=== PATIENT | female | born 1960 | race Caucasian/White ===

== ENCOUNTER 2020-04-14 10:34 | Emergency (ER) | payer BC, SELFPAY ==
[2020-04-14 10:40] VITALS: BP 128/89; PULSE 82; RESP 21; TEMP 36.8; O2SAT 99; BMI 30.2
--- NOTE | 2020-04-14 10:53 | HMH.EDUTC ---
[facility] [place] Disposition Clinical Impression: Bronchitis Sinusitis Qualifiers: Sinusitis location: unspecified location Chronicity: unspecified Qualified Code(s): J32.9 - Chronic sinusitis, unspecified Disposition: Home, Self-Care Condition on Discharge: Good Instructions: Diarrhea, Acute Bronchitis, DI for Sinusitis, Preventing the Spread of Coronavirus Discharge Instructions Additional Instructions: *Monitor Temp, Over the counter Motrin or Tylenol as directed/as needed Tylenol every 4 hours and Motrin every 6 hours (as long as your family doctor has told you that you can take it) for fever or pain. and straight to ER if unable to lower temp less than 101.0 after medication given *Warm salt water gargles may help to soothe the throat *Throat Lozenges *Warm fluids like tea with honey may help to soothe the throat *Sleep elevated *Humidifier/Vaporizer *Flonase 2 sprays in each nostril daily but be aware that it may take 2-3 days before you notice improvement ? Inhaler every 4-6 hours as needed like we discussed. If unsure how to use it, ask pharmacist to demonstrate how. Should help open airways and improve cough, wheezing, and shortness of breath Your throat swab was sent for culture. Those results are typically sent to your primary care. Be sure to follow up in 2-3 days with your family doctor/primary care physician if no improvement so they can review those result and treat if necessary. If you don?t have a primary care doctor, I recommend you get one but in the mean time, you will have to return to a walk in clinic Follow up IMMEDIATELY for new or worsening symptoms or no Noticeable improvement over the next 48-72 hours. 911 for difficulty breathing or swallowing ? You was given an outpatient order for diarrhea panel, please collect specimen and bring back to outpatient lab then call back to the [facility] or follow up with family doctor for results You was tested for today for COVID19 your test result should be back later this evening, you may call back later this evening to see if your test results are back and the result You was given a handout with instructions for Self Quarantine and Self isolation for while you wait on test results and what to do if they are positive Prescriptions: Albuterol Sulfate [Proventil-HFA 90mcg/puff Inh] 1 - 2 puffs IH Q4HP PRN #1 inh PRN Reason: Shortness Of Breath Transmission Status: Received by [facility] Dicyclomine HCl [Bentyl 10mg capsule] 10 mg PO TID PRN #15 cap PRN Reason: Cramping Transmission Status: [facility] Azithromycin [Z-Anthony 250mg Tab] 250 mg PO DIRECTED #6 tab Transmission Status: [facility] Referrals: Monika Mcallister [Primary Care Provider] - As needed Time of Disposition: 11:18 Medical Decision Making - Norberto Inquiry Pt receiving controlled substance: No Norberto was queried for this patient: No Vital Signs: 04/14/20 10:40 04/14/20 11:23 Temperature 98.2 F 98.2 F Temperature Source Oral Pulse Rate 82 Pulse Rate [Right Brachial] 82 Respiratory Rate 21 21 Blood Pressure 128/89 Blood Pressure [Right Arm] 128/89 Blood Pressure Mean [Right Arm] 102 Blood Pressure Source [Right Arm] Automatic Cuff Blood Pressure Position [Right Arm] Sitting 02 Sat by Pulse Oximetry 99 Oxygen Delivery Method Room Air - Lab Data Lab results reviewed: Yes: I reviewed the patient's lab results. Lab Results 04/14/20 10:45: Influenza Type A Ag Negative, Influenza Type B Ag Negative 04/14/20 10:45: Strep Scn Rapid Clinic Negative Orders (Tests/Meds): ORDERS Category Date Time Status Diarrhea 23 Panel, PCR Stat Lab 04/14/20 16:09 Ordered Strep Screen Confirmation Stat Micro 04/14/20 10:45 Received [facility] [place] HPI - General Stated complaint: Fever, cough, diarrhea Time Seen by Provider: 04/14/20 10:56 Mode of Arrival: Ambulatory Source of Information: Patient Limitations: No Limitations Description of
[2020-04-14 11:09] LABS: UTC Strep Screen (Rapid) Negative (Negative)
[2020-04-14 11:10] LABS: UTC Influenza A Antigen Negative (Negative); UTC Influenza B Antigen Negative (Negative)
[2020-04-14 11:23] VITALS: BP 128/89; PULSE 82; RESP 21; TEMP 36.8; O2SAT 99
[2020-04-17 14:55] LABS: Adenovirus F 40/41, stool Not Detected (NotDetected); Astrovirus Not Detected (NotDetected); Campylobacter Not Detected (NotDetected); Clostridium Difficile A/B, PCR Not Detected (NotDetected); Cryptosporidium Not Detected (NotDetected); Cyclospora Cayetanesis Not Detected (NotDetected); Entamoeba histolytica Not Detected (NotDetected); Enteroaggregative E coli Not Detected (NotDetected); Enteropathogenic E coli Not Detected (NotDetected); Enterotoxigenic E coli Not Detected (NotDetected); Giardia lamblia Not Detected (NotDetected); Norovirus Not Detected (NotDetected); Plesimonas Shigalloides, PCR Not Detected (NotDetected); Rotavirus A Not Detected (NotDetected); Salmonella, PCR Not Detected (NotDetected); Shiga-like toxin E coli Not Detected (NotDetected); Shigella Enterovasive E coli Not Detected (NotDetected); Vibrio Cholerae Not Detected (NotDetected); Vibrio, PCR Not Detected (NotDetected); Yersinia Entercolitica, PCR Not Detected (NotDetected)
[2020-04-21 03:39] LABS: Sapovirus Not Detected (NotDetected)
== END 2020-04-14 11:25 | disposition home or self-care (01) ==
PROVIDERS: Emergency Provider Nurse Practitioner; PCP Family Medicine Addiction Medicine
DX: J20.9 Acute bronchitis, unspecified (principal); R19.7 Diarrhea, unspecified; J32.9 Chronic sinusitis, unspecified; Z20.828 Contact with and (suspected) exposure to other viral communicable diseases; Z88.0 Allergy status to penicillin; Z88.2 Allergy status to sulfonamides; F17.210 Nicotine dependence, cigarettes, uncomplicated
CPT/HCPCS: 87507; 87804; 87880; 99202; U0003

== ENCOUNTER 2020-07-20 14:35 | Emergency (ER) | payer BC, SELFPAY ==
[2020-07-20 15:25] VITALS: BP 99/59; PULSE 99; RESP 14; TEMP 36.6; O2SAT 97; BMI 29.2
--- NOTE | 2020-07-20 15:56 | HMH.EDUTC ---
[facility] [place] Disposition Clinical Impression: Acute bronchitis Qualifiers: Bronchitis organism: unspecified organism Qualified Code(s): J20.9 - Acute bronchitis, unspecified Disposition: Home, Self-Care Condition on Discharge: Good Instructions: DI for Chronic Obstructive Pulmonary Disease, How to Quit Tobacco Products Additional Instructions: Drink plenty of fluids. Take tylenol for pain or fever. Return if you begin to have difficulty breathing. Follow up with your regular doctor. GO TO THE ER FOR ANY WORSENING SYMPTOMS Prescriptions: Promethazine/Dextromethorphan [Promethazine-Dm Syrup] 5 ml PO Q6HP PRN #240 syrup PRN Reason: Cough Transmission Status: Received by [facility] Azithromycin [Z-Anthony 250mg Tab*] 250 mg PO UD DOSE PK #6 tab Transmission Status: Received by [facility] Referrals: PCP,No [Primary Care Provider] - Time of Disposition: 16:05 Medical Decision Making - Medical Records Medical records reviewed: No: I reviewed the patient's medical records. - Norberto Inquiry Pt receiving controlled substance: No Vital Signs: 07/20/20 15:25 07/20/20 16:13 Temperature 97.8 F 97.8 F Temperature Source Oral Pulse Rate 99 H Pulse Rate [Right Brachial] 99 H Respiratory Rate 14 14 Blood Pressure 99/59 L Blood Pressure [Right Arm] 99/59 L Blood Pressure Mean [Right Arm] 72 Blood Pressure Source [Right Arm] Automatic Cuff Blood Pressure Position [Right Arm] Sitting 02 Sat by Pulse Oximetry 97 Oxygen Delivery Method Room Air - Lab Data Lab Results 07/20/20 15:38: Influenza Type A Ag Negative, Influenza Type B Ag Negative 07/20/20 15:38: Strep Scn Rapid Clinic Negative Orders (Tests/Meds): ORDERS Category Date Time Status Strep Screen Confirmation Stat Micro 07/20/20 15:38 Received [facility] [place] HPI - General Stated complaint: Shortness of breath;congestion Time Seen by Provider: 07/20/20 15:56 Mode of Arrival: Ambulatory Source of Information: Patient Limitations: No Limitations Description of Symptoms (Recalled from Triage Doc. by RN): PATIENT C/O COUGH, SORE THROAT, AND SOA X 2 WEEKS HEENT Symptoms (Recalled from RN notes): No Resp Symptoms (Recalled from RN notes): Yes Skin Symptoms (Recalled from RN notes): No MS Symptoms (Recalled from RN notes): No Functional Status (Recalled from RN notes): WNL - History of Present Illness Provider Complaint: She states that for over the past 1 week she has had a cough and chest congestion. It seems to be getting worse. She denies significant shortness of breath. She has smoked cigarettes for the past 35 years. She denies any history of copd or asthma. - Related Data Previous Rx's Medication Instructions Recorded Albuterol Sulfate [Proventil-HFA 1 - 2 puffs IH Q4HP PRN #1 inh 04/14/20 90mcg/puff Inh] Azithromycin [Z-Anthony 250mg Tab] 250 mg PO DIRECTED #6 tab 04/14/20 Dicyclomine HCl [Bentyl 10mg 10 mg PO TID PRN #15 cap 04/14/20 capsule] Azithromycin [Z-Anthony 250mg Tab*] 250 mg PO UD DOSE PK #6 tab 07/20/20 Promethazine/Dextromethorphan 5 ml PO Q6HP PRN #240 syrup 07/20/20 [Promethazine-Dm Syrup] Allergies Allergy/AdvReac Type Severity Reaction Status Date / Time Corticosteroids Allergy Severe Anaphylaxis Verified 05/28/19 15:30 (Glucocorticoids) Penicillins [PENICILLINS] Allergy Mild UNKNOWN Verified 05/28/19 15:30 Sulfa (Sulfonamide Allergy Mild UNKNOWN Verified 05/28/19 15:30 Antibiotics) [SULFA (SULFONAMIDE ANTIBIOTICS)] ALL COLD MEDICINES Allergy Intermediate I-RASH, Uncoded 06/07/17 14:36 CAUSES TO SWELL - Worker's Comp Is this a Worker's Comp case?: No [facility] History - Hepatitis A Screen Drug use history?: No High risk sexual behaviors?: No History of sexually transmitted infection?: No Currently employed?: No Childcare worker?: No Do you have indoor plumbing?: Yes Do you have electricity?: Yes Attestation statement:: This patie
[2020-07-20 15:58] LABS: UTC Strep Screen (Rapid) Negative (Negative)
[2020-07-20 15:59] LABS: UTC Influenza A Antigen Negative (Negative)
[2020-07-20 16:00] LABS: UTC Influenza B Antigen Negative (Negative)
[2020-07-20 16:13] VITALS: BP 99/59; PULSE 99; RESP 14; TEMP 36.6; O2SAT 97
== END 2020-07-20 16:18 | disposition home or self-care (01) ==
PROVIDERS: Emergency Provider Nurse Practitioner Family
DX: Z20.822 Contact with and (suspected) exposure to COVID-19 (principal); J20.9 Acute bronchitis, unspecified; Z88.0 Allergy status to penicillin; Z88.2 Allergy status to sulfonamides; F17.210 Nicotine dependence, cigarettes, uncomplicated
CPT/HCPCS: 87804; 87880; 99202; G0463; U0003

== ENCOUNTER 2020-11-27 20:24 | Emergency (ER) | payer BC, SELFPAY ==
[2020-11-27 20:36] VITALS: BP 136/80; PULSE 85; RESP 19; TEMP 36.8; O2SAT 97; BMI 26.2
[2020-11-27 20:38] VITALS: BMI 26.2
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
[2020-11-27 20:45] VITALS: BP 136/80; PULSE 85; RESP 19; TEMP 36.8; O2SAT 97
== END 2020-11-27 21:01 | disposition home or self-care (01) ==
PROVIDERS: Emergency Provider Nurse Practitioner Family
DX: T22.212A Burn of second degree of left forearm, initial encounter (principal); T20.10XA Burn of first degree of head, face, and neck, unspecified site, initial encounter; T20.17XA Burn of first degree of neck, initial encounter; X03.8XXA Other exposure to controlled fire, not in building or structure, initial encounter; Y93.G2 Activity, grilling and smoking food; Y92.018 Other place in single-family (private) house as the place of occurrence of the external cause; Z23 Encounter for immunization; F17.210 Nicotine dependence, cigarettes, uncomplicated; Z88.0 Allergy status to penicillin; Z88.2 Allergy status to sulfonamides
CPT/HCPCS: 90471; 90715; 99202; G0463

== ENCOUNTER → 2021-10-24 09:22 | Outpatient (CLI) | payer BC, SELFPAY | PROVIDERS: Visit Provider Ophthalmology | DX: Z01.812 Encounter for preprocedural laboratory examination (principal); Z11.52 Encounter for screening for COVID-19 | CPT/HCPCS: C9803; U0003; U0005 ==

== ENCOUNTER 2021-10-27 09:17 | Day surgery (SDC) | payer BC, SELFPAY ==
[2021-10-22 15:17] VITALS: BMI 28.2
[2021-10-27 09:43] VITALS: BP 161/86; PULSE 78; RESP 18; TEMP 36.6; O2SAT 99
--- NOTE | 2021-10-27 12:29 | SUR.OPER ---
administer 1 drop of purple drops in each eye after procedure
== END 2021-10-27 11:00 | disposition home or self-care (01) ==
LOC: OUTP 09:19
PROVIDERS: Visit Provider Ophthalmology
PROC: (CPT 66821; principal; 2021-10-27 09:30)
DX: H26.493 Other secondary cataract, bilateral (principal); Z96.1 Presence of intraocular lens; H02.831 Dermatochalasis of right upper eyelid; H02.834 Dermatochalasis of left upper eyelid; M19.90 Unspecified osteoarthritis, unspecified site; I48.91 Unspecified atrial fibrillation; H91.90 Unspecified hearing loss, unspecified ear; E78.00 Pure hypercholesterolemia, unspecified; Z79.899 Other long term (current) drug therapy; Z88.0 Allergy status to penicillin; Z88.2 Allergy status to sulfonamides; Z88.8 Allergy status to other drugs, medicaments and biological substances
CPT/HCPCS: 66821

== ENCOUNTER 2021-11-29 17:50 | Emergency (ER) | payer BC, SELFPAY ==
[2021-11-29 18:00] VITALS: BP 136/90; PULSE 82; RESP 18; TEMP 36.8; O2SAT 98; BMI 26.4
--- NOTE | 2021-11-29 18:22 | HMH.EDUTC ---
[facility] [place] Clinical Impression: Tick bite Qualifiers: Encounter type: initial encounter Site of tick bite: upper arm Laterality: right Qualified Code(s): S40.861A - Insect bite (nonvenomous) of right upper arm, initial encounter; W57.XXXA - Bitten or stung by nonvenomous insect and other nonvenomous arthropods, initial encounter Disposition: Home, Self-Care Condition on Discharge: Good Instructions: How to Remove a Tick, Protect Yourself from Tickborne Illnesses, Doxycycline Additional Instructions: Take medication as prescribed Follow up with your Family Doctor if no improvement or any worsening of symptoms Return if needed Straight to ER if any life threatening symptoms Prescriptions: Doxycycline Monohydrate [Doxycycline George 100mg Tab] 100 mg PO BID 10 Days #20 tab Transmission Status: Pending to [facility] Referrals: Monika Mcallister [Primary Care Provider] - As needed Time of Disposition: 18:36 Medical Decision Making - Norberto Inquiry Pt receiving controlled substance: No Norberto was queried for this patient: No Vital Signs: 11/29/21 18:00 Temperature 98.3 F Temperature Source Oral Pulse Rate [Right Brachial] 82 Respiratory Rate 18 Blood Pressure [Right Arm] 136/90 Blood Pressure Mean [Right Arm] 105 Blood Pressure Source [Right Arm] Automatic Cuff Blood Pressure Position [Right Arm] Sitting 02 Sat by Pulse Oximetry 98 Oxygen Delivery Method Room Air Medical Decision Narrative: medication discussed with pharmacy [facility] [place] HPI - General Stated complaint: Tick bite now has knot Time Seen by Provider: 11/29/21 18:22 Mode of Arrival: Ambulatory Source of Information: Patient Limitations: No Limitations Description of Symptoms (Recalled from Triage Doc. by RN): PATIENT C/O TICK BITE TO RIGHT ARM THAT HAPPENED 3 DAYS AGO HEENT Symptoms (Recalled from RN notes): No Resp Symptoms (Recalled from RN notes): No Skin Symptoms (Recalled from RN notes): Yes MS Symptoms (Recalled from RN notes): No Functional Status (Recalled from RN notes): WNL - History of Present Illness Provider Complaint: Patient states that about 3-4 days ago she noticed a tick on her right upper arm and she removed it State that this morning her right arm was feeling achy, noticed what appears to be rash starting around the tick bite area and family was concerned and wanted her to come in and get checked out - Related Data Home Medications Medication Instructions Recorded Confirmed Cholecalciferol (Vitamin D3) 5,000 unit PO DAILY 10/22/21 10/27/21 [Vitamin D3] Meloxicam 15 mg PO DAILY 10/22/21 10/27/21 Omeprazole [Omeprazole 20mg 20 mg PO DAILY 10/22/21 10/27/21 Capsule] Rosuvastatin Calcium [Crestor 10mg 10 mg PO DAILY 10/22/21 10/27/21 Tablets] Previous Rx's Medication Instructions Recorded Doxycycline Monohydrate 100 mg PO BID 10 Days #20 tab 11/29/21 [Doxycycline George 100mg Tab] Allergies Allergy/AdvReac Type Severity Reaction Status Date / Time Corticosteroids Allergy Severe Anaphylaxis Verified 11/27/20 20:45 (Glucocorticoids) Penicillins [PENICILLINS] Allergy Mild UNKNOWN Verified 11/27/20 20:45 Sulfa (Sulfonamide Allergy Mild UNKNOWN Verified 11/27/20 20:45 Antibiotics) [SULFA (SULFONAMIDE ANTIBIOTICS)] ALL COLD MEDICINES Allergy Intermediate I-RASH, Uncoded 06/07/17 14:36 CAUSES TO SWELL - Worker's Comp Is this a Worker's Comp case?: No [facility] History - Hepatitis A Screen Attestation statement:: This patient has been screened for Hepatitis A risk factors. I have reviewed the patient's past medical history: Yes Medical History: Reports:: Congestive Heart Failure, Hyperlipidemia, Myocardial Infarction Denies:: Cancer, Diabetes Mellitus Type 1, Diabetes Mellitus Type 2, Internal Pacemaker, MRSA, Seizures Other Surgeries: No: Pacemaker Amputation: No Fractures: No - Social History Smoking Status: Current every day smok
[2021-11-29 18:39] VITALS: BP 136/90; PULSE 82; RESP 18; TEMP 36.8; O2SAT 98
== END 2021-11-29 18:46 | disposition home or self-care (01) ==
PROVIDERS: Emergency Provider Nurse Practitioner; PCP Family Medicine Addiction Medicine
DX: S40.861A Insect bite (nonvenomous) of right upper arm, initial encounter; W57.XXXA Bitten or stung by nonvenomous insect and other nonvenomous arthropods, initial encounter
CPT/HCPCS: 99212; G0463

== ENCOUNTER 2023-01-26 20:48 | Emergency (ER) | payer BC, SELFPAY ==
[2023-01-26] VITALS (7 sets, daily range): BP systolic 120–166; BP diastolic 60–70; PULSE 67–89; RESP 18; TEMP 36.9; O2SAT 96–99; BMI 25.2
--- NOTE | 2023-01-26 21:17 | XR_ITS ---
PROCEDURE INFORMATION: Exam: XR Chest Exam date and time: 01/26/2023 9:17 PM Age: 62 years old Clinical indication: Shortness of breath; Additional info: SOA TECHNIQUE: Imaging protocol: Radiologic exam of the chest. Views: 1 view. COMPARISON: CR CXR CHEST(2 VIEWS-NOT PORTABLE) 11/08/2016 10:26 PM FINDINGS: Lungs: Unremarkable. No consolidation. Pleural spaces: Unremarkable. No pleural effusion. No pneumothorax. Heart/Mediastinum: Unremarkable. No cardiomegaly. Bones/joints: Unremarkable. IMPRESSION: No acute findings.
[2023-01-26 21:27] LABS: Influenza A, PCR Not Detected (NotDetected); Influenza B, PCR Not Detected (NotDetected)
--- NOTE | 2023-01-26 21:38 | HMH.EDGENADL ---
Discharge Plan Disposition Patient Disposition: Home, Self-Care Chief Complaint: Upper Respiratory Infection Prescriptions Prescriptions: No Action pravastatin 10 mg tablet 10 mg PO HS Patient Comments: TAKE 1 TABLET BY MOUTH ONCE DAILY Referrals Follow up/Referrals: Monika Mcallister [Primary Care Provider] - See instructions Activity Restrictions/Add. Instructions Additional Instructions/Restrictions: At this time and so you are safe to be discharged home. If new or worsening symptoms please do not hesitate to return the emergency department. Clinical Impressions Clinical Impression: COVID-19 Discharge ED Provider: Jose Lake General Adult HPI General Chief complaint: Upper Respiratory Infection Stated complaint: sore throat, h/a Time Seen by Provider: 01/26/23 21:00 Mode of Arrival: Ambulatory Source of Information: Patient and Spouse Limitations: No Limitations Description of Symptoms (Recalled from ER Triage Doc. by RN): pt reports the household has been dealing with covid for 2 weeks and that she believes she came down with it last. she remi been feeling badly and is concerned about some splotches on tongue and the exhaustion she is still feeling the pt also states she has a cough and sore throat. as well as irratability History of Present Illness HPI narrative: Patient is a 62-year-old female with no significant past medical history who presents to the emergency department for evaluation of multiple complaints. Patient has multiple sick contacts with COVID. She is felt diffusely weak, has had splotches on her tongue, cough, sore throat. No other acute complaints at this time. Denies chest pain, abdominal pain. Related Data Home Medications Medication Instructions Recorded Confirmed pravastatin 10 mg tablet 10 mg PO HS High Cholesterol 01/26/23 01/26/23 Allergies Allergy/AdvReac Type Severity Reaction Status Date / Time Corticosteroids Allergy Severe Anaphylaxis Verified 11/27/20 20:45 (Glucocorticoids) Penicillins [PENICILLINS] Allergy Mild UNKNOWN Verified 11/27/20 20:45 Sulfa (Sulfonamide Allergy Mild UNKNOWN Verified 11/27/20 20:45 Antibiotics) [SULFA (SULFONAMIDE ANTIBIOTICS)] ALL COLD MEDICINES Allergy Intermediate I-RASH, Uncoded 06/07/17 14:36 CAUSES TO SWELL [facility] Disclaimer: The information contained in this section may have been updated after the patient was seen, as this information can be updated by other users. Medical History (Updated 08/09/23 @ 22:50 by Jose Lake MD) High cholesterol Social History Smoking Status: Current every day smoker tobacco type: cigarettes packs per day: 1 second hand exposure: No alcohol intake: never current occupational status: other Travel in the last 8 weeks: None household members: spouse and family housing: house current occupation: house current occupational exposures/hazards: No caffeine: Yes ROS Obtained: Yes Systems reviewed as appropriate & no additional complaints except as documented Physical Exam General General appearance: alert and in no apparent distress Head Head exam: atraumatic and normocephalic Eye Eye exam: Present PERRL and EOMI ENT ENT exam: Present mucous membranes moist and other (Mildly erythematous posterior oropharynx, no tonsillar swelling or exudate, no uvular deviation. Greenish-brown film over the tongue) Neck Neck exam: Present lymphadenopathy (Right submandibular) Chest Chest inspection: Present normal inspection and symmetric chest wall rise Respiratory Respiratory exam: Present normal lung sounds bilaterally; Absent respiratory distress Cardiovascular Cardiovascular exam: Present regular rate and normal rhythm Abdominal Exam Abdominal exam: Present soft; Absent tenderness Extremities Exam Extremities exam: Present normal inspection Neurological Exam Neurologic
[2023-01-26 22:02] LABS: Coronavirus 19, PCR Detected (NotDetected)
== END 2023-01-26 23:00 | disposition home or self-care (01) ==
PROVIDERS: Emergency Provider Emergency Medicine; PCP Family Medicine Addiction Medicine
DX: U07.1 COVID-19 (principal); R51.9 Headache, unspecified; R53.1 Weakness; F17.210 Nicotine dependence, cigarettes, uncomplicated
CPT/HCPCS: 71045; 87636; 99283

== ENCOUNTER → 2023-03-21 23:22 | Outpatient (CLI) | payer BC, SELFPAY ==
[2023-03-21 19:05] LABS: Alanine Aminotransferase 15 U/L (12-78); Albumin Level 4.3 g/dl (3.5-5.0); Albumin/Globulin Ratio 1.3 (1.1-1.8); Alkaline Phosphatase 127 U/L (38-126); Anion Gap 12.3 mEq/L (5-15); Aspartate Amino Transferase 25 U/L (14-36); Bilirubin,Total 0.3 mg/dl (0.2-1.3); Blood Urea Nitrogen 11 mg/dl (7-17); Calcium 9.4 mg/dl (8.4-10.2); Carbon Dioxide 26 mmol/L (22.0-30.0); Chloride 106 mmol/L (98-107); Chol/HDL Ratio 5.7 (1-3.5); Cholesterol 234 mg/dl (140-200); Estimated Glomerular Filt Rate 85 ml/min (>60); GFR (African American) 103 ML/MIN (>60); Globulin 3.3 g/dL (1.3-3.2); Glucose 102 mg/dl (74-100); HDL Cholesterol 41 mg/dl (40-60); Potassium 4.3 mmoL/L (3.5-5.1); Sodium 140 mmol/L (136-145); Total Protein,Serum 7.6 g/dl (6.3-8.2); Triglycerides 146 mg/dl (30-150); VLDL Cholesterol 29 mg/dL (0-40)
[2023-03-21 19:16] LABS: Direct LDL Cholesterol 134.41 mg/dL (100-129)
[2023-03-21 19:24] LABS: 25-OH Vitamin D, Total 17.1 ng/mL (30-100)
[2023-03-21 19:30] LABS: Basophils # 0.1 K/mm3 (0-0.2); Eosinophils # 0.1 K/mm3 (0.0-0.4); Eosinophils % 1.9 % (0.1-12.0); Hematocrit 44.6 % (37.0-47.0); Hemoglobin 14.4 g/dL (12.2-16.2); Lymphocytes # 2.4 K/mm3 (0.7-4.5); Lymphocytes % 32.9 % (10-50); Mean Corpuscular HGB Conc 32.3 g/dL (31.8-35.4); Mean Corpuscular Hemoglobin 29.5 pg (27.0-31.2); Mean Corpuscular Volume 91.5 fl (81-99); Mean Platelet Volume 10.2 fl (7.4-10.4); Monocytes # 0.4 K/mm3 (0.1-1.0); Monocytes % 4.7 % (1.7-9.3); Neutrophils # 4.4 K/mm3 (1.8-7.8); Neutrophils % 59.5 % (37.0-80.0); Platelet Count 257 K/mm3 (142-424); Red Blood Count 4.87 M/mm3 (4.20-5.40); Red Cell Distribution Width 13.8 % (11.5-17.5); White Blood Count 7.4 K/mm3 (4.8-10.8)
[2023-03-21 19:36] LABS: Thyroid Stimulating Hormone 1.95 uIU/mL (0.465-4.68)
[2023-03-21 19:56] LABS: Vitamin B12 525 pg/mL (239-931)
== END ==
PROVIDERS: PCP Student in an Organized Health Care Education/Training Program; Visit Provider Student in an Organized Health Care Education/Training Program
DX: I45.6 Pre-excitation syndrome (principal); R53.83 Other fatigue; E55.9 Vitamin D deficiency, unspecified; R73.09 Other abnormal glucose; Z79.899 Other long term (current) drug therapy
CPT/HCPCS: 80053; 80061; 82306; 82607; 84443; 85025

== ENCOUNTER → 2023-03-30 07:22 | Outpatient (CLI) | payer BC, SELFPAY ==
--- NOTE | 2023-03-30 07:25 | CT_ITS ---
FINAL REPORT TECHNIQUE: Axial images were obtained from the lung apex to the mid abdomen by computed tomography. This study was performed with techniques to keep radiation doses as low as reasonably achievable (ALARA). Individualized dose reduction techniques using automated exposure control or adjustment of mA and/or kV according to the patient's size were employed. CLINICAL HISTORY: lung cancer screening, smoker for 40 years 1ppd, current smoker FINDINGS: CHEST CT LOW DOSE CTDI vol (mGy): 2.90 DLP (mGy-cm): 93.25 There is mild to moderate left coronary artery calcification. There is no axillary adenopathy. There is no hilar or mediastinal adenopathy. The heart is normal in size. There is no pericardial or pleural effusion. There is mild scarring and mild emphysema. Several calcified granulomas are identified. There are multiple small bilateral noncalcified nodules. Nodule in the left lung apex measures 4 mm is well seen on image 11. Nodule in the right lower lobe measures 3 mm is well seen on image 30. Limited images of the upper abdomen are unremarkable. IMPRESSION: Nodules as above. Lung RADS category 2. Recommend 12 month follow-up low-dose chest CT. Reviewed, Interpreted and Dictated by Jayme Infante III, MD Transcribed by Mariann Mir Authenticated and [facility]
--- NOTE | 2023-03-30 07:44 | MM_ITS ---
PROCEDURE INFORMATION: Exam: Bilateral Screening 3D Mammography Exam date and time: 03/30/2023 7:48 AM Age: 62 years old Clinical indication: Screening examination TECHNIQUE: Imaging protocol: Bilateral Screening tomosynthesis and 2D mammography including computer-aided detection (CAD) when performed. COMPARISON: 1. MG DMDXUAVR DIG MAMM-DX UNIL ADD VIEWS-RT 02/04/2012 9:09 AM 2. MG DMSB DIGITAL MAMM-SCREEN BILATERAL 01/20/2012 3:41 PM FINDINGS: MAMMOGRAPHY: Breast composition: There are scattered areas of fibroglandular density. Mass: None. Architectural distortion: None. Calcifications: No suspicious calcifications. Asymmetric density: None. Skin thickening: None. Axillary adenopathy: None. IMPRESSION: No mammographic evidence of malignancy. Annual screening is recommended unless otherwise clinically indicated. ASSESSMENT: BI-RADS Category 1: Negative
== END ==
PROVIDERS: PCP Student in an Organized Health Care Education/Training Program; Visit Provider Student in an Organized Health Care Education/Training Program
DX: Z12.31 Encounter for screening mammogram for malignant neoplasm of breast (principal); Z87.891 Personal history of nicotine dependence; Z12.2 Encounter for screening for malignant neoplasm of respiratory organs
CPT/HCPCS: 36415; 71271; 77063; 77067; 80053; 80061; 82607; 83036; 85025

== ENCOUNTER → 2023-04-06 13:56 | Outpatient (CLI) | payer BC, SELFPAY ==
--- NOTE | 2023-04-06 13:56 | CT_ITS ---
FINAL REPORT TECHNIQUE: Thin section axial CT images with coronal and sagittal reformats were performed through the neck. This study was performed with techniques to keep radiation doses as low as reasonably achievable (ALARA). Individualized dose reduction techniques using automated exposure control or adjustment of mA and/or kV according to the patient's size were employed. CLINICAL HISTORY: right lymph node enlargement COMPARISON: None FINDINGS: No adenopathy or mass lesion is present . Salivary glands are normal. Larynx is unremarkable. The hypopharynx and nasopharynx are unremarkable. Thyroid gland is unremarkable. There is multilevel mild and moderate degenerative change in the cervical spine. Mild changes of emphysema are present in the upper lung guerrero. There are multiple nodules in the lung apices bilaterally, the largest measuring 7 mm in the left apex. There is also a calcified granuloma present in the left apex. IMPRESSION: No significant cervical adenopathy or mass is seen. Multilevel mild and moderate degenerative change of the cervical spine. Mild changes of emphysema with multiple nodules present in the apices, the largest in the left apex measuring 7 mm in size. Would recommend 6-month follow-up CT with contrast of the chest for further evaluation. Reviewed, Interpreted and Dictated by Jayme Infante III, MD Transcribed by Anika Harrell Authenticated and [facility]
== END ==
LOC: RAD 13:56
PROVIDERS: PCP Student in an Organized Health Care Education/Training Program; Visit Provider Nurse Practitioner
DX: R59.9 Enlarged lymph nodes, unspecified (principal)
CPT/HCPCS: 70490

== ENCOUNTER → 2023-04-06 15:47 | Outpatient (CLI) | payer BC, SELFPAY | LOC: RT 15:48 | PROVIDERS: PCP Student in an Organized Health Care Education/Training Program; Visit Provider Nurse Practitioner | DX: R06.00 Dyspnea, unspecified (principal); R07.89 Other chest pain; R53.83 Other fatigue; R94.31 Abnormal electrocardiogram [ECG] [EKG]; Z72.0 Tobacco use; Z86.79 Personal history of other diseases of the circulatory system | CPT/HCPCS: 93270 ==

== ENCOUNTER → 2023-04-07 07:38 | Outpatient (CLI) | payer BC, SELFPAY ==
[2023-04-07 08:40] VITALS: PULSE 71
== END ==
LOC: RT 07:38
PROVIDERS: PCP Student in an Organized Health Care Education/Training Program; Visit Provider Student in an Organized Health Care Education/Training Program
DX: R91.8 Other nonspecific abnormal finding of lung field (principal)
CPT/HCPCS: 94060; 94618; 94640; 94727; 94729

== ENCOUNTER → 2023-04-11 12:11 | Outpatient (CLI) | payer BC, SELFPAY ==
--- NOTE | 2023-04-11 12:12 | CA_ITS ---
APPROVED REPORT Exam: Exercise Treadmill Technologist: Belia Bone, Ht: 4 ft 10 in Wt: 138 lbs BSA: 1.56 m2 HR: 75 bpm BP: 152/52 mmHg Rhythm: NSR Medical History Medications: Vitamin D3,,,,, Flonase,,,,, Albuterol,,,,, ProvaSTATIN,,,,, NYstatin,,,,, Xyzal,,,,, Spiriva RESPIMAT,,,,, Stress Test Details Test: Lakhwinder HR Resting HR: 79 bpm Max Heart Rate (APMHR): 159 bpm Max HR Achieved: 155 bpm Target HR (85% APMHR): 135 bpm % of APMHR: 97 Recovery HR: 98 bpm HR response to stress: Normal HR response to stress BP Resting BP: 142.0/66.0 mmHg Max BP: 200.0/90.0 mmHg Recovery BP: 151.0/60.0 mmHg BP response to stress: Abnormal hypertensive response to stress. ECG Resting ECG: Normal sinus rhythm Stress ECG: < 0.[address] depression Arrhythmia: PVCs Recovery ECG: Return to baseline within 3 minutes of recovery Recovery Arrhythmia: None Clinical Exercise duration: 08:26 min Highest Stage Achieved: III Exercise capacity: 10.1 METs Overall Exercise Capacity for Age: Average Stress ECG Conclusion The patient was able to exercise for a total of 8 minutes, 26 seconds. She achieved a total of 10.1 METS. She has an average exercise capacity compared to age and sex matched peers. She has normal HR, but exaggerated BP, response to exercise. Max HR: 155 % of PM: 97 Max BP: 200/90 METs: 10.1 Test stopped due to: Dyspnea Symptoms: Dyspnea, leg fatigue Arrhythmias/Ectopy: PVC's ST-T Changes: < 0.[address] depression Conclusion: Average exercise capacity. Hypertensive response to exercise. No significant ECG changes at peak stress suggestive of ischemia. Myoview images are reported separately. Test Summary REST . . . . . . . Sitting REST 03:27 0.0 0.0 79 . 142/ 66 . . Stage 1 01:00 10.0 1.7 97 . . . . Stage 1 02:00 10.0 1.7 103 . . . . Stage 1 03:00 10.0 1.7 108 . 184/ 70 . . Stage 2 01:00 12.0 2.5 115 . . . . Stage 2 02:00 12.0 2.5 116 . 200/ 90 . . Stage 2 03:00 12.0 2.5 122 . 200/ 90 . . Stage 3 01:00 14.0 3.4 137 . . . . Stage 3 . . . . . . . Myoview Injected Stage 3 02:00 14.0 3.4 146 . . . . Stage 3 02:26 14.0 3.4 152 . . . Stop exercise at 08:26 RECOVERY 01:00 0.0 0.0 127 . . . . RECOVERY 02:00 0.0 0.0 112 . 168/ 65 . . RECOVERY 03:00 0.0 0.0 105 . 161/ 65 . . RECOVERY 03:56 0.0 0.0 101 . 151/ 60 . . Electronically signed by : Frances Cantu MD 04/12/2023 10:59:30
--- NOTE | 2023-04-11 12:15 | NM_ITS ---
APPROVED REPORT Exam: Nuclear Stress Test Indication: H/O CO, HYPERLIPIDEMIA, TOB USE, FM HX, SOB, PALPITATIONS, FATIGUE, DIZZINESS Patient Location: Outpatient Stress Tech: Belia Chaparro NM Tech:Dara Parra ARRT RT (R)(N)(M) Ht: 4 ft 10 in Wt: 130 lbs Bra Size: DD HR: 79 bpm BP: 142/65 mmHg BSA: 1.52 m2 TID: 1.20 BMI: 27.1 History: H/O CO, HYPERLIPIDEMIA, TOB USE, FM HX, SOB, PALPITATIONS, FATIGUE, DIZZINESS Procedure: Patient exercised on Lakhwinder protocol 8:26 minutes and sec, resting heart rate 79 bpm, resting blood pressure 142/65 mmHg, with exercise maximum heart rate achived was 155 bpm which is 97 % of the maximum predicted heart rate and blood pressure was 200/90 mmHg. Test was stopped due to FATIGUE. Patient denied any complaint of chest pain. Patient has exercise capacity, achieved 10.1 METs of workload on treadmill, the blood pressure response to exercise was . Cardiac Stress and Resting SPECT Images: Cardiac Stress and Resting SPECT images were obtained using technetium 99m Myoview 30.8 mCi stress and 10.46 mCi at rest. Resting and stress imaging in supine and prone positions demonstrate no evidence of fixed or reversible perfusion defects. There is borderline increase in transient ischemic dilatation ratio (TID 1.20), suggestive of possible multivessel disease or balanced ischemia. Gated imaging demonstrates normal global and regional LV systolic function. LVEF is calculated at 66%. Conclusion: no evidence of fixed or reversible perfusion defects. There is borderline increase in transient ischemic dilatation ratio (TID 1.20), suggestive of possible multivessel disease or balanced ischemia. Gated imaging demonstrates normal global and regional LV systolic function. LVEF is calculated at 66%. Due to inconclusive results (i.e. borderline elevated TID ratio), further evaluation with alternative noninvasive testing, i.e. CCTA, as suggested if deemed clinically appropriate. Electronically signed by : Frances Cantu MD 04/12/2023 11:04:01
== END ==
LOC: RAD 12:12
PROVIDERS: PCP Student in an Organized Health Care Education/Training Program; Visit Provider Nurse Practitioner
DX: R06.00 Dyspnea, unspecified (principal); R07.89 Other chest pain; R53.83 Other fatigue; R94.31 Abnormal electrocardiogram [ECG] [EKG]; Z72.0 Tobacco use; Z86.79 Personal history of other diseases of the circulatory system
CPT/HCPCS: 78452; 93017; A9502

== ENCOUNTER → 2023-04-18 14:23 | Outpatient (CLI) | payer BC, SELFPAY ==
--- NOTE | 2023-04-18 14:28 | CA_ITS ---
APPROVED REPORT EXAM: Comprehensive 2D, Doppler, and color-flow Echocardiogram Bond Trader: Lauren Bergman RT(R) Ht: 4 ft 10 in Wt: 138lbs BSA: 1.56 BP: 156/47 mmHg Indications: CP,DYSPENA,SMOKER,FATIGUE 2D Dimensions LVOT 1.86 cm (M/F) 1.5-2.5 LVEF (Maria's) 65.70 % F: 54 - 74 LV Volume 72.20 mL F: 46 - 106 LV Volume Index 46.28 mL/m2 F: 29 - 61 LA Volume 28.40 mL LA Volume Index 18.21 mL/m2 (M/F) 16-34 M-Mode Dimensions RVDd 2.15 cm (0.9-2.6) LA Diam 3.05 cm (1.9-4.0) LVDd 3.90 cm (3.5-5.7) Ao Diam 2.22 cm (2.0-3.7) LVDs 2.79 cm (3.5-5.7) IVSd 0.64 cm (0.6-1.1) PWd 0.72 cm (0.6-1.1) EF (Teich) 55.50% FS 28.50% EDV (Teich) 65.90 mL ESV (Teich) 29.30 mL LV Diastology E Decel Time 220.00 (160-240 msec) E/A Ratio 1.0 MED E' 8.60 (< 7 cm/sec) E'/MED E' Ratio 13.65 (>14) LAT E' 7.80 (<10 cm/sec) E/LAT E' Ratio 15.05 (>14) Aortic Valve LVOT Max 118.00 (70-110 cm/s) LVOT VTI 26.37 cm AoV Peak Rk. 142.00 (50-130 cm/s) AI PHT 454.00 ms AO Peak GR. 8.10 mmHg AO Mean GR. 4.00 (<5 mmHg) AO VTI 29.35 (18-25 cm) AMBER (VTI) 2.44 (2.5-4.5 cm2) Mitral Valve MV E Max Rk. 117.00 (40-130 cm/s) MV A Velocity 118.00 (40-130 cm/s) E/A Ratio 1.00 MV Decel. Time 220.00 (160-240 ms) MV PHT 64.00 ms Tricuspid Valve TR P. Velocity 206.00 cm/s RAP Estimate 10.00 mmHg RVSP 27.00 mmHg Left Ventricle The left ventricle is normal size. The left ventricular systolic function is normal. The left ventricular ejection fraction is within the normal range. Proximal septal thickening is noted. There is normal LV segmental wall motion. Diastolic function is indeterminate. LVEF is 60%. Right Ventricle The right ventricle is normal size. The right ventricular systolic function is normal. There is increased RV wall thickness. Atria The left atrium size is normal. The right atrium size is normal. There is no Doppler evidence of interatrial shunt. Aortic Valve The aortic valve is mildly thickened. There is no aortic valvular stenosis. Mild to moderate aortic regurgitation. Mitral Valve The mitral valve leaflets are mildly thickened. No evidence of mitral valve stenosis. Mild mitral regurgitation. Tricuspid Valve The tricuspid valve leaflets are thin and pliable. Mild tricuspid regurgitation. RVSP is 15-20 mmHg. Pulmonic Valve The pulmonary valve is normal in structure. Trace pulmonic regurgitation. Great Vessels The aortic root is normal in size. The ascending aorta is normal in size. IVC is normal in size and collapses >50% with inspiration. Pericardium Trivial anterior pericardial effusion. Other Information Study Quality: Fair Conclusion Normal biventricular systolic function. Mild to moderate AI. Mild MR, TR. Trivial anterior pericardial effusion. Compared to prior study from 2013, the severity of AI is overall unchanged. Electronically signed by : Frances Cantu MD 04/18/2023 22:19:12
== END ==
PROVIDERS: PCP Student in an Organized Health Care Education/Training Program; Visit Provider Nurse Practitioner
DX: R06.00 Dyspnea, unspecified (principal); R07.89 Other chest pain; R94.31 Abnormal electrocardiogram [ECG] [EKG]; R53.83 Other fatigue; Z72.0 Tobacco use; Z86.79 Personal history of other diseases of the circulatory system
CPT/HCPCS: 93306

== ENCOUNTER → 2023-04-26 10:51 | Outpatient (POV) | payer BC, SELFPAY | PROVIDERS: Visit Provider Specialist/Technologist | DX: Z00.00 Encounter for general adult medical examination without abnormal findings (principal) ==

== ENCOUNTER → 2023-08-02 08:48 | Day surgery (SDC) | payer BC, SELFPAY ==
[2023-06-06 10:26] VITALS: BMI 29.2
[2023-08-01 12:41] VITALS: BMI 30.3
[2023-08-02 09:35] VITALS: BP 143/61; PULSE 75; RESP 18; TEMP 36.3; O2SAT 99
--- NOTE | 2023-08-02 09:41 | EXP.ANES.CKL ---
[facility] Disclaimer: The information contained in this section may have been updated after the patient was seen, as this information can be updated by other users. Medical History Abnormal result of cardiovascular function study Acute pharyngitis Anxiety Aortic insufficiency Chronic cough COPD (chronic obstructive pulmonary disease) Hearing Loss Heart valve regurgitation High cholesterol History of cataract History of COVID-19 History of gastroesophageal reflux (GERD) Impacted cerumen of left ear New onset a-fib Tonsil asymmetry Unspecified hearing loss, bilateral Vtcbj-Zhmvqlbhp-Bxxik (WPW) syndrome Surgical History History of cataract surgery Hx of exploratory laparotomy Hx of tubal ligation Family History Other Cancer Diabetes Hypertension Social History Smoking Status: Current every day smoker tobacco type: cigarettes packs per day: 1 second hand exposure: No alcohol intake: never substance use type: denies use current occupational status: unemployed Travel in the last 8 weeks: None household members: spouse and family housing: house current occupation: house current occupational exposures/hazards: No caffeine: Yes [facility] Anesthesia Checklist Patient Identification Patient Identification: Arm Band and Verbal (Name & ) Structural Data Admitted From: Home Planned Operative Procedure/s: EGD Consent for Planned Operative Procedure(s) Verified: Yes NPO Status Verified Time NPO: 00:00 Airway Assessment Mallampati Score:: Class II C-Spine Mobility Assessed: Yes TMJ Mobility Assessed: Yes Dentition: Edentulous Neurological Assessment Level of Consciousness: Awake Hx Seizures: No Numbness or tingling in extremities: No Anesthesia Plan Anesthesia Risk discussed: Yes Anesthesia Plan: Verified ASA Class: III Anesthesia Type: MAC
[2023-08-02] MEDS: LACTATED RINGERS 1000ML 1,000 ML 25 ML IV (09:43)
--- NOTE | 2023-08-02 09:47 | HMH.SCOPE ---
Procedure: Date: 08/02/23 Patient Date of :: 1960 Procedure Performed:: Esophagogastroduodenoscopy with biopsy Indications:: Epigastric pain Gastroesophageal reflux Dysphagia Nausea Decreased appetite Performing Provider:: Chance Hernández MD Referring Provider:: . Sedation:: Monitored anesthesia care Procedure:: After informed consent was obtained the patient was taken to the endoscopy suite. Sedation ensued after the patient was transferred to the left lateral decubitus position. Pulse, blood pressure, and oxygen saturation were monitored throughout the procedure. The endoscope was advanced beyond the duodenal bulb. Retroflexion within the gastric lumen was accomplished. The gastroscope was carefully removed and the patient was transferred to recovery in stable condition. Please see findings and specimens below for detail. Findings:: Gastroesophageal junction at 36 cm Moderately patulous esophagus with mild tortuosity Streaking distal gastritis Shallow small ulceration in prepyloric region Patchy duodenitis Specimens:: Antral biopsy Prepyloric biopsy (margin of shallow small ulceration) Recommendations:: Follow-up pathology Consider barium swallow Consider modified barium swallow Consider UGI/SBFT Consider gastric emptying scan Consider gastroenterology consultation Complications:: No immediate Estimated blood obtained (mL): 1 Colonoscopy Component Colonoscopy Component Was a colonoscopy performed during today's procedure?: No
[2023-08-02 09:52] VITALS: O2SAT 99
[2023-08-02 10:11] VITALS: BP 107/54; PULSE 87; RESP 14; TEMP 36.4; O2SAT 94
[2023-08-02 10:21] VITALS: BP 103/61; PULSE 74; RESP 14; O2SAT 97
[2023-08-02 10:31] VITALS: BP 118/64; PULSE 85; RESP 18; O2SAT 98
[2023-08-02 10:41] VITALS: BP 99/76; PULSE 82; RESP 16; O2SAT 97
== END | disposition home or self-care (01) ==
PROVIDERS: PCP Student in an Organized Health Care Education/Training Program; Visit Provider Surgery
PROC: 0DJ08ZZ Inspection of Upper Intestinal Tract, Via Natural or Artificial Opening Endoscopic (ICD-10-PCS; CPT 43235; principal; 2023-08-02 10:00)
DX: K29.50 Unspecified chronic gastritis without bleeding (principal); R10.13 Epigastric pain; K21.9 Gastro-esophageal reflux disease without esophagitis; R13.10 Dysphagia, unspecified; R11.0 Nausea; K31.89 Other diseases of stomach and duodenum
CPT/HCPCS: 43239

== ENCOUNTER 2023-10-11 11:10 | Outpatient (CLI) | payer BC, SELFPAY ==
[2023-10-11 12:16] LABS: Occult Blood,Stool Negative (Negative)
[2023-10-15 21:09] LABS: Calprotectin, Fecal 37 ug/g (0-120)
[2023-10-24 15:31] LABS: Pancreatic Elastase, Fecal <50 (>200)
== END 2023-10-11 23:59 | disposition home or self-care (01) ==
LOC: LAB.DROPOF 11:10
PROVIDERS: PCP Student in an Organized Health Care Education/Training Program; Visit Provider Nurse Practitioner
DX: K22.0 Achalasia of cardia (principal); K29.50 Unspecified chronic gastritis without bleeding
CPT/HCPCS: 82272; 82656; 83993; G0328

== ENCOUNTER 2023-10-28 08:00 | Outpatient (CLI) | payer BC, SELFPAY ==
--- NOTE | 2023-10-28 08:05 | FL_ITS ---
FINAL REPORT CLINICAL HISTORY: abnormal motility esophagus on EGD DAP 298.19 0.59 min FINDINGS: ESOPHAGRAM HISTORY: Abdominal pain, nausea. PROCEDURE: The patient ingested barium. Effervescent crystals were also administered. Spot and overhead films were obtained. FINDINGS: The esophagus is normal. There is mild esophageal dysmotility. No gastroesophageal reflux was elicited during the fluoroscopic exam. There is a tiny sliding-type hiatal hernia with a Schatzki's ring. IMPRESSION: 1. Mild esophageal dysmotility. 2. Tiny sliding-type hiatal hernia with Schatzki's ring. Fluoroscopy time: 0.59 minutes Fluoro dose: 298.19 DAP in [employer] Films reviewed , interpreted and dictated by Dr. Infante Transcribed by Dave Carmona PA-C. Reviewed, Interpreted and Dictated by Jayme Infante III, MD Transcribed by STAS Martinez Authenticated and . [facility]
[2023-10-28] MEDS: BARIUM SULFATE(LIQUID E-Z-PAQUE);355ML BOTTLE 355 ML PO (08:23)
[2023-10-28] MEDS: E-Z-GASII EFFERVESCENT GRANULES;1PK 1 EACH PO (08:24)
[2023-10-28] MEDS: BARIUM SULFATE (E-Z-HD 340GM);135ML BOTTLE 135 ML PO (08:24)
== END 2023-10-28 23:59 | disposition home or self-care (01) ==
LOC: RAD 08:02
PROVIDERS: PCP Student in an Organized Health Care Education/Training Program; Visit Provider Nurse Practitioner
DX: R13.10 Dysphagia, unspecified (principal); K22.0 Achalasia of cardia
CPT/HCPCS: 74220

== ENCOUNTER 2024-02-28 14:50 | Outpatient (CLI) | payer BC, SELFPAY ==
[2024-02-28 15:23] LABS: Basophils # 0.1 K/mm3 (0-0.2); Basophils % 1.9 % (0.1-2.0); Eosinophils # 0.1 K/mm3 (0.0-0.4); Eosinophils % 1.8 % (0.1-12.0); Hematocrit 43.5 % (37.0-47.0); Hemoglobin 13.9 g/dL (12.2-16.2); Lymphocytes # 2.7 K/mm3 (0.7-4.5); Lymphocytes % 37.5 % (10-50); Mean Corpuscular HGB Conc 31.9 g/dL (31.8-35.4); Mean Corpuscular Hemoglobin 29.6 pg (27.0-31.2); Mean Corpuscular Volume 92.9 fl (81-99); Mean Platelet Volume 8.7 fl (7.4-10.4); Monocytes # 0.4 K/mm3 (0.1-1.0); Monocytes % 5.4 % (1.7-9.3); Neutrophils # 3.8 K/mm3 (1.8-7.8); Neutrophils % 53.5 % (37.0-80.0); Platelet Count 302 K/mm3 (142-424); Red Blood Count 4.68 M/mm3 (4.20-5.40); White Blood Count 7.2 K/mm3 (4.8-10.8)
[2024-02-28 15:47] LABS: Alanine Aminotransferase 15 U/L (12-78); Albumin Level 3.9 g/dl (3.5-5.0); Alkaline Phosphatase 121 U/L (38-126); Anion Gap 7.5 mEq/L (5-15); Aspartate Amino Transferase 26 U/L (14-36); Bilirubin,Direct 0.3 mg/dl (0.0-0.4); Bilirubin,Indirect 0.2 mg/dL (0.0-0.9); Bilirubin,Total 0.5 mg/dl (0.2-1.3); Bilirubin,Unconjugated 0.2 mg/dL (0.0-1.1); Blood Urea Nitrogen 6 mg/dl (7-17); Calcium 9.1 mg/dl (8.4-10.2); Carbon Dioxide 27 mmol/L (22.0-30.0); Chloride 105 mmol/L (98-107); Chol/HDL Ratio 6.1 (1-3.5); Cholesterol 250 mg/dl (140-200); Estimated Glomerular Filt Rate 85 ml/min (>60); GFR (African American) 103 ML/MIN (>60); Glucose 139 mg/dl (74-100); HDL Cholesterol 41 mg/dl (40-60); Potassium 4.5 mmoL/L (3.5-5.1); Sodium 135 mmol/L (136-145); Total Protein,Serum 7.2 g/dl (6.3-8.2); Triglycerides 163 mg/dl (30-150); VLDL Cholesterol 33 mg/dL (0-40)
[2024-02-28 15:58] LABS: Direct LDL Cholesterol 168.11 mg/dL (100-129)
== END 2024-02-28 23:59 | disposition home or self-care (01) ==
LOC: LAB 14:51
PROVIDERS: Nurse Practitioner; PCP Internal Medicine; Visit Provider Nurse Practitioner
DX: R53.83 Other fatigue (principal); R94.30 Abnormal result of cardiovascular function study, unspecified; R06.02 Shortness of breath; I48.91 Unspecified atrial fibrillation; R94.31 Abnormal electrocardiogram [ECG] [EKG]; I48.0 Paroxysmal atrial fibrillation; E86.0 Dehydration; R13.19 Other dysphagia
CPT/HCPCS: 36415; 80048; 80061; 80076; 85025

== ENCOUNTER 2024-03-30 11:58 | Outpatient (CLI) | payer BC, SELFPAY ==
--- NOTE | 2024-03-30 12:03 | CT_ITS ---
APPROVED REPORT Rn Navigator: CLINICAL INDICATION Chest Pain TECHNIQUE Image Acquisition: A 128 slice MDCT scanner (Storm Exchangea View) was used for data acquisition. A noncontrast coronary calcium scan was performed. A CT attenuation threshold of 130 Hounsfield units (HU) was used for the detection of calcium in contiguous voxels of 1 sq mm in area to be counted as individual lesions. Bolus tracking in the ascending aorta with a threshold of 180 HU was performed. Immediately afterwards, ECG synchronized cardiac CT was then performed from the cardiac base to apex using retrospective gating with ECG tube current modulation. A total of 85 mL of Isovue 370 mg/mL contrast medium was administered at 5 mL/sec followed by a saline flush using a biphasic injection protocol. A tube voltage of 120 KVp was used. The patient received the following medications prior to the cardiac CT. 150 mg of oral metoprolol 15 mg of oral ivabradine 0.4 mg of sublingual nitroglycerin The average heart rate at the time of acquisition was 49 bpm and regular. Image Reconstruction Transaxial images were reconstructed at 0.67 mm slide thickness. Data was reviewed interactively on an advanced workstation capable of 2 and 3-dimensional displays in all conventional reconstruction formats, including multiplanar reformations, maximum intensity projections, curved multiplanar reformations, and volume rendered reconstructions. When applicable, selected routine images describing the relevant coronary anatomy and pathology were saved and sent to PACS. Complications None Technical Quality Overall image quality was good. Coronary artery opacification was adequate. Total DLP (Dose-Length Product) is 1610.5 mGy-cm. The reported value represents the total of one or more individual components during the CT acquisition of this date and at this time, and as such, the same value may appear in more than one CT report depending on the interpreting/reporting physicians. COMPARISON None FINDINGS CT Coronary Calcium Scoring LMA (Left Main Artery) = 0 LAD (Left Anterior Descending) = 80 LCX (Left Coronary Circumflex) = 73 RCA (Right Coronary Artery) = 0 Total Calcium Score = 153 using the AJ-130 method. The observed calcium score of 153 is at 90th percentile for subjects of the same age, sex, and race/ethnicity. The interpretation of the calcium heart score is based on the following continuum*: 0 = no calcified plaque detected (risk of coronary artery disease is very low ??? less than 5%) 1-10 = calcium detected in extremely minimal levels (risk of coronary diseases is still low ??? less than 10%) 11-100 = mild levels of plaque detected with certainty (mild or minimal narrowing of heart arteries is likely) 101-400 = definite,at least moderate levels of plaque detected (relatively high risk of a heart attack within 3-5 years) >401-999 = extensive levels of plaque detected (high risk of heart attack, high levels of vascular disease are present, high likelihood of at least one significant coronary narrowing) *The calcium heart score quantifies the burden of coronary calcification/plaque in the coronary arteries. The calcium heart score is not able to evaluate the presence or burden of non-calcified (i.e. soft) plaque. There is also calcification in the aortic valve, mitral annulus, and the ascending and descending thoracic aorta. Coronary CT Angiography The coronary arterial system is left dominant. Quantitative Stenosis Grading: Left Main (LM): The left main originates normally from the left sinus of Valsalva. The LM bifurcates into the left anterior descending artery and left circumflex artery. The LM is patent with no evidence of atherosclerosis. Left Anterior Descending (LAD) and Diagonal Branches: The LAD gives off 2 diagonal branch(es). There is mixed calcified/noncalcified plaque in the proximal and mid LAD segments, with up to 50 to 70% luminal stenosis in the proximal segment. There is no evidence of LAD-myocardial bridge. Left Circumflex (LCX) and Obtuse Marginals (OM): The LCX gives off 2 Obtuse Marginal (OM) branch(es). There is mixed calcified/noncalcified plaque in the proximal LCx segment with up to 25-49% luminal stenosis. Right Coronary Artery (RCA): The RCA originates normally from the right sinus of Valsalva. The RCA is a small caliber vessel. There is mixed calcified/noncalcified plaque in the ostial RCA, with 25 to 49% luminal stenosis.. Non-Coronary Cardiac Findings: Analysis of the left ventricular (LV) structure and function was performed after 3-D reconstruction of the LV from axial images, with user-corrected automatic contouring for assessment of LV volumes and user-defined reconstruction from oblique planes for measurement of 3-D cardiac structure and function. -The left ventricle systolic function is normal. -There is no left atrial appendage filling defect. Two right pulmonary veins and two left pulmonary veins drain normally into the left atrium. -No pericardial thickening or calcification. -Central and branch pulmonary arteries in the [id number] are unremarkable. -Thoracic aorta within the visualized thoracic aortic-branches in the [id number]-ru-ghbr is unremarkable. Extracardiac Structures No significant extra-cardiac findings. Note, however, that this study is focused on the cardiac findings. IMPRESSION -Presence of coronary calcification with an Agatston score = 153 using the AJ-130 method. -The observed calcium score of 153 is at 90th percentile for subjects of the same age, sex, and race/ethnicity. -Multivessel atherosclerotic coronary disease in the proximal and mid LAD segments, proximal LCx (dominant) and ostial RCA. Possible evidence of significant flow-limiting atherosclerosis of the proximal LAD segment with presence of moderate 50 to 70% luminal stenosis. -Calcification in the aortic valve, mitral annulus, and the ascending and descending thoracic aorta. -CAD-RADS 3. Management recommendations per ACC/AHA guidelines*, as clinically appropriate. *Recommendations: CAD RADS 0: Reassurance. Consider non-atherosclerotic causes of chest pain. CAD RADS 1: Consider non-atherosclerotic causes of chest pain. Consider preventive therapy and risk factor modification. CAD RADS 2: Consider non-atherosclerotic causes of chest pain. Consider preventive therapy and risk factor modification, particularly for patients with nonobstructive plaque in multiple segments. CAD RADS 3: Consider further functional testing. Consider symptom-guided anti-ischemic and preventive pharmacotherapy as well as risk factor modification per published guideline statements. CAD RADS 4A: Consider further functional testing or invasive coronary angiography with revascularization per published guideline statements. Consider symptom-guided anti-ischemic and preventive pharmacotherapy as well as risk factor modification per published guideline statements. CAD RADS 4B: Invasive coronary angiography recommended with revascularization per published guideline statements. Consider symptom-guided anti-ischemic and preventive pharmacotherapy as well as risk factor modification per published guideline statements. CAD RADS 5: Consider invasive angiography and/or viability assessment with revascularization per published guideline statements. Consider symptom-guided anti-ischemic and preventive pharmacotherapy as well as risk factor modification per published guideline statements. CRITICAL RESULT None COMMUNICATION Per this written report The coronary and cardiac findings of this CCTA were reviewed, reported, and signed by Suhail Cantu MD (Telephoto Engineer) Conclusion Electronically signed by : Frances Cantu MD 04/03/2024 11:44:06
[2024-03-30 12:10] VITALS: BMI 28.3
[2024-03-30 12:17] VITALS: BP 150/70; PULSE 80; RESP 16; O2SAT 100
[2024-03-30] MEDS: IVABRADINE HCL 7.5MG TABLET PO (12:20)
[2024-03-30] MEDS: METOPROLOL TARTRATE 50MG TABLET PO ×2 (12:20→13:05)
[2024-03-30] MEDS: METOPROLOL TARTRATE 25MG TABLET 25 MG (12:20)
[2024-03-30 12:34] LABS: Chloride 102 mmol/L (98-107); Potassium 4.8 mmoL/L (3.5-5.1); Sodium 131 mmol/L (136-145)
[2024-03-30 12:37] LABS: Anion Gap 10.8 mEq/L (5-15); Blood Urea Nitrogen 5 mg/dl (7-17); Carbon Dioxide 23 mmol/L (22.0-30.0); Creatinine Clearance Estimated 58 mL/min (50-200); Estimated Glomerular Filt Rate 101 ml/min (>60); GFR (African American) 123 ML/MIN (>60); Glucose 102 mg/dl (74-100)
[2024-03-30 13:40] VITALS: BP 129/91; PULSE 60; RESP 16; TEMP 36.4; O2SAT 99
[2024-03-30 13:43] VITALS: BP 136/73; PULSE 60; RESP 16; O2SAT 99
[2024-03-30] MEDS: IOPAMIDOL-370 (76%);100ML BOTTLE 85 ML IV (13:45)
[2024-03-30] MEDS: SODIUM CHLORIDE 0.9% 10ML SYR (RAD ONLY) 10 ML IV (13:45)
[2024-03-30] MEDS: 0.9 % SODIUM CHLORIDE 50 ML VIAL IV (13:45)
[2024-03-30 13:46] VITALS: BP 129/59; PULSE 58; RESP 16; O2SAT 98
[2024-03-30 13:55] VITALS: BP 111/62; PULSE 61; RESP 16; O2SAT 98
== END 2024-03-30 14:00 | disposition home or self-care (01) ==
PROVIDERS: PCP Student in an Organized Health Care Education/Training Program; Visit Provider Nurse Practitioner
DX: R94.30 Abnormal result of cardiovascular function study, unspecified (principal); R06.02 Shortness of breath; R53.83 Other fatigue
CPT/HCPCS: 75574; 80048; Q9967

== ENCOUNTER 2024-05-03 08:28 | Day surgery (SDC) | payer BC, SELFPAY ==
[2024-05-03] VITALS (12 sets, daily range): BP systolic 113–148; BP diastolic 61–74; PULSE 66–83; RESP 16–18; TEMP 36.9; O2SAT 96–99; BMI 30.3
--- NOTE | 2024-05-03 07:09 | IR_ITS ---
APPROVED REPORT Patient Location: Outpatient PROCEDURES Left heart catheterization Left ventriculogram Selective coronary angiogram INDICATION Elevated troponin, Non-ST elevation myocardial infarction Informed consent was obtained prior to the procedure. COMPLICATIONS NONE Estimated Blood Loss: LESS THAN 10 ML TECHNIQUE One percent lidocaine used to anesthetize the right anterior aspect of the wrist. The right radial artery was accessed via the Seldinger technique. A 6 Burmese sheath was placed in the right radial artery. 2.5 mg of Verapamil, 800 mcg of nitroglycerin, 1mg Lidocaine and 5000 U Heparin were given through the arterial sheath. The 6 Burmese JL 3 guide catheter r was also used to perform left heart catheterization, left ventriculogram and selective coronary angiogram. At the end of the procedure the sheath was removed good hemostasis was achieved using Traclet band, patient was transferred to the postop holding area in stable condition. ANGIOGRAPHIC RESULTS The left main artery Normal The left anterior descending artery Has proximal 10% luminal regularities. Immediately after the first diagonal artery the LAD is small caliber less than 2 mm in diameter and has a focal concentric 70 to 80% stenosis. The vessel was no greater than 1.5 mm in diameter in this area. The remaining LAD is widely patent simply small in caliber but does approach the apex The circumflex artery Large and dominant and normal in the proximal and midportion. Distally there is an eccentric 30% stenosis The right coronary artery Vestigial normal The BRADLEY ventriculogram reveals Normal 65% The left ventricular end-diastolic pressure 30 mmHg IMPRESSION Moderate to severe coronary artery disease in the mid LAD and a 1.5 mm small caliber vessel Normal ejection fraction Elevated LVEDP PLAN 1. Medical management for coronary artery disease 2. Risk factor modification 3. Treatment of diastolic dysfunction 4. The LAD is too small for percutaneous intervention. This should respond favorably to medical management 5. Patient remains alone acceptable risk to proceed with elective GI surgery/procedure Electronically signed by : Jorge L Mayes MD 05/03/2024 13:38:12
[2024-05-03 08:58] LABS: Basophils # 0.1 K/mm3 (0-0.2); Eosinophils # 0.1 K/mm3 (0.0-0.4); Eosinophils % 2.7 % (0.1-12.0); Hematocrit 43.8 % (37.0-47.0); Hemoglobin 14.8 g/dL (12.2-16.2); Lymphocytes # 1.9 K/mm3 (0.7-4.5); Lymphocytes % 35.3 % (10-50); Mean Corpuscular HGB Conc 33.8 g/dL (31.8-35.4); Mean Corpuscular Hemoglobin 30.3 pg (27.0-31.2); Mean Corpuscular Volume 89.8 fl (81-99); Mean Platelet Volume 8.1 fl (7.4-10.4); Monocytes # 0.3 K/mm3 (0.1-1.0); Monocytes % 5.5 % (1.7-9.3); Neutrophils % 54.6 % (37.0-80.0); Platelet Count 311 K/mm3 (142-424); Red Blood Count 4.87 M/mm3 (4.20-5.40); Red Cell Distribution Width 13.7 % (11.5-17.5); White Blood Count 5.5 K/mm3 (4.8-10.8)
[2024-05-03 09:09] LABS: Blood Urea Nitrogen 6 mg/dl (7-17); Calcium 9.4 mg/dl (8.4-10.2); Carbon Dioxide 29 mmol/L (22.0-30.0); Creatinine Clearance Estimated 61 mL/min (50-200); Estimated Glomerular Filt Rate 73 ml/min (>60); GFR (African American) 88 ML/MIN (>60); Glucose 66 mg/dl (74-100); Potassium 3.9 mmoL/L (3.5-5.1); Sodium 141 mmol/L (136-145)
[2024-05-03 09:12] LABS: Anion Gap 11.9 mEq/L (5-15); Chloride 104 mmol/L (98-107)
[2024-05-03] MEDS: VERAPAMIL 2.5MG/ML 2ML VIAL 2.5 MG IV (10:14)
[2024-05-03] MEDS: HEPARIN 1,000 UNITS/ML 10ML VIAL (CATH LAB) 10000 UNIT IV (10:14)
[2024-05-03] MEDS: NITROGLYCERIN 800MCG/8ML SYR (CATH LAB) 800 MCG IA (10:14)
[2024-05-03] MEDS: 0.9 % SODIUM CHLORIDE 500 ML 25 ML IV (10:15)
[2024-05-03] MEDS: LIDOCAINE 1% 10ML MDV 20 ML IJ (10:15)
[2024-05-03] MEDS: diphenhydrAMINE 50MG/ML VIAL 50 MG IV (10:15)
[2024-05-03] MEDS: HEPARIN 1,000 UNITS/500ML NS (CATH LAB) 3000 UNIT IV (10:16)
[2024-05-03] MEDS: FENTANYL 100MCG/2ML VIAL 50 MCG IV (10:41)
[2024-05-03] MEDS: MIDAZOLAM HCL 1MG/ML 5ML VIAL 1 MG IV (10:41)
[2024-05-03] MEDS: IOPAMIDOL-370 (76%);100ML BOTTLE 70 ML IV (14:27)
== END 2024-05-03 13:16 | disposition home or self-care (01) ==
PROVIDERS: PCP Student in an Organized Health Care Education/Training Program; Visit Provider Internal Medicine
DX: I25.10 Atherosclerotic heart disease of native coronary artery without angina pectoris (principal); I35.1 Nonrheumatic aortic (valve) insufficiency; I48.0 Paroxysmal atrial fibrillation; R93.1 Abnormal findings on diagnostic imaging of heart and coronary circulation; R94.31 Abnormal electrocardiogram [ECG] [EKG]; R06.02 Shortness of breath; E78.5 Hyperlipidemia, unspecified; Z86.79 Personal history of other diseases of the circulatory system; F17.210 Nicotine dependence, cigarettes, uncomplicated; Z79.899 Other long term (current) drug therapy
CPT/HCPCS: 80048; 85025; 93458; 99152; C1725; C1769; J1200; J1644; J2250; J3010; Q9967